=== PATIENT | female | born 1980 | race Caucasian/White ===

== ENCOUNTER 2021-07-08 14:25 | Inpatient (IN) | payer OTHER, MEDICARE ==
[2021-07-08] MEDS ORDERED: hydrOXYzine HCl 25 MG Tab PO PRN (14:42)
[2021-07-08] MEDS ORDERED: Piperacillin/Tazobactam 4.5 GM in Sodium Chloride 0.9% 100 ML IV ONE (15:15)
[2021-07-08] MEDS: Sodium Chloride 0.9% 1,000 ML IV SCH (15:22)
[2021-07-08] MEDS: metroNIDAZOLE/Normal Saline 500 MG in Premix Bag 1 BAG IV SCH ×2 (15:30→22:23)
[2021-07-08] MEDS: Ondansetron 4 MG Tab.DIS PO PRN ×2 (15:32→22:28)
[2021-07-08] MEDS: Morphine 2 MG/ML SYRINGE IVPUSH PRN ×4 (15:32→22:20)
[2021-07-08 16:02] LABS: CHLORIDE,CL 101 mmol/L (98-107); SODIUM,NA 139 mmol/L (136-145)
[2021-07-08 16:07] LABS: ANION GAP 15.6 mmol/L (5-15)
[2021-07-08] MEDS ORDERED: RIZATRIPTAN BENZOATE 10 MG PO PRN (18:59)
[2021-07-08] MEDS ORDERED: Bisacodyl 5 MG Tab PO PRN (18:59)
[2021-07-08] MEDS ORDERED: PETROLATUM WHITE EYERT PRN (18:59)
[2021-07-08] MEDS ORDERED: MINERAL OIL EYERT PRN (18:59)
[2021-07-08] MEDS ORDERED: SUMAtriptan 50 MG Tab PO PRN (19:00)
[2021-07-08] MEDS: Topiramate 50 MG Tab PO SCH (19:56)
[2021-07-08] MEDS: Acetaminophen 325 MG Tab PO PRN (19:57)
[2021-07-08] MEDS: Gabapentin 300 MG Cap PO SCH (19:59)
[2021-07-08] MEDS: carBAMazepine 200 MG Tab PO SCH (19:59)
[2021-07-08] MEDS: methylPREDNISolone Sodium Succinate 40 MG/1 ML SDV IVPUSH SCH (20:00)
[2021-07-08] MEDS ORDERED: metroNIDAZOLE/Normal Saline 100 ML ONE (22:03)
[2021-07-08] MEDS ORDERED: Piperacillin/Tazobactam 3.375 GM in Sodium Chloride 0.9% 100 ML IV SCH (23:00)
[2021-07-08] MEDS: Piperacillin/Tazobactam 3.375 GM in Sodium Chloride 0.9% 100 ML IV SCH (23:25)
--- NOTE | 2021-07-08 23:33 | HP ---
Admission history and physical to the acute care floor at [facility]. CHIEF COMPLAINT: Abdominal pain. HISTORY OF PRESENT ILLNESS: The patient had presented earlier to the [facility] complaining of abdominal pain that started a couple of days ago. The patient is status post hysterectomy 2 months ago. The patient states she only had 1 UTI since her surgery. She did have COVID 2 weeks ago. The patient states her pain is along the right lower abdomen and radiates to the right lower pelvis into the right groin. She rates her pain 10/10. The patient states her bowel movements are normal. She only has a bowel movement about once a week. She does not have any dysuria or frequency. She denies any vaginal odor or discharge. She has had some nausea but no vomiting. No diarrhea. The patient states the pain waxes and wanes, but it is always present to some degree. The patient denies any headaches, dizziness, or lightheadedness. No shortness of breath or cough. No chest pain or palpitations. The patient has had fevers and chills since yesterday. PAST MEDICAL HISTORY: 1. Arnold Chiari malformation. 2. Meibomian gland disease. 3. 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 4. Corneal faustina revascularization. 5. Glaucoma, right eye. 6. Post corneal transplant. 7. Cholecystitis, chronic. 8. Chronic migraine. 9. GERD. 10.Uterovaginal prolapse. 11.Cystocele with rectocele. 12.Chronic pain syndrome. 13.Chronic constipation. PAST SURGICAL HISTORY: 1. Vaginal prolapse repair. 2. Vaginal hysterectomy. 3. Upper GI endoscopy. 4. Revision of aqueous shunt. 5. Colonoscopy. 6. Keratoplasty. 7. Cholecystectomy. 8. Excision of pterygium with graft. FAMILY HISTORY: Noncontributory. SOCIAL HISTORY: The patient does not drink any alcohol. The patient does not use any illegal substances. The patient is a nonsmoker. The patient is disabled secondary to right eye injury. LABORATORY STUDIES: 1. CBC: White blood cell count was 16.8, hemoglobin 11.4, hematocrit 34.7, platelets 347,000. 2. BMP: Sodium 139, potassium 3.6, chloride 101, CO2 of 26, anion gap 15.6, BUN 8, creatinine 0.9, GFR greater than 60, glucose 102, lactic acid 0.9, calcium 8.3, AST 13, ALT 19, alkaline phosphatase 132. 3. CRP 14.9. 4. Procalcitonin 0.06. IMAGING STUDIES: CT of chest, abdomen, and pelvis with and without contrast reveals acute sigmoid diverticulitis with micro perforation and multiple adjacent fluid collections consistent with abscess. Multiple prominent fluid- filled loops of small bowel without clear transition point. These findings are likely suggestive of reactive ileus versus partial small bowel obstruction. Ground-glass densities, most pronounced within the right upper lobe is likely infectious/inflammatory in nature as can be seen with atypical/viral pneumonia. REVIEW OF SYSTEMS: As above. DISCHARGE PHYSICAL EXAMINATION: Vital signs: Height 5 feet 7 inches, weight is 244, blood pressure 102/68, pulse 88, respiratory rate 32, temperature 101.7, SpO2 of 95%. Skin: Intact, warm, and dry. Respiratory: Lungs are clear to auscultation, no wheezing. Cardiovascular: Regular rate and rhythm, no murmur. Abdomen: Exquisitely tender in the right lower quadrant extending into the right lower pelvis. Bowel sounds are hypoactive. Neurological: The patient is alert. The patient is oriented to person, place, and time. Extremities: No edema. General: The patient is not in any acute distress. The patient is cooperative. No focal neurological deficits. ASSESSMENT: 1. Sepsis secondary to abdominal abscess as evidenced by leukocytosis and fever. 2. Acute sigmoid diverticulitis with micro perforation. 3. Colon abscess. 4. Chronic pain syndrome. 5. Chronic use of opioid analgesics. 6. Opioid induced constipation. 7. Chronic migraines. 8. Major depressive disorder, in remission. PLAN: A 40-year-old female patient admitted to the acute care floor at [facility] for the above diagnoses. The case was discussed with Dr. Wilbert Patricia, general surgeon at [facility]. The patient does not appear to be a surgical candidate at this point, however, if her symptoms worsen, we will repeat the CT scan. The patient will be started on Zosyn and Flagyl IV. We will leave n.p.o. throughout tonight and restart clear liquids tomorrow. Case management for discharge planning. The patient to be out of bed and up and walking. DVT prophylaxis with early ambulation. No indication for PT or OT services. The patient is a full code. The patient does wish to transfer to a higher level of care should the need arise. We will start the patient on IV prednisone for colon inflammation. We will start the patient on IV Protonix for GI prophylaxis. Home medications are the same. This patient was seen and examined by me as an [facility] provider. TB: 07/08/2021 19:14:08 MODL: 07/08/2021 23:26:34 /[id number]
[2021-07-09] MEDS: Sodium Chloride 0.9% 1,000 ML IV SCH ×2 (02:49→23:43)
[2021-07-09] MEDS: Morphine 2 MG/ML SYRINGE IVPUSH PRN ×2 (04:09→06:25)
[2021-07-09] MEDS: Ondansetron 4 MG Tab.DIS PO PRN (04:09)
[2021-07-09] MEDS: metroNIDAZOLE/Normal Saline 500 MG in Premix Bag 1 BAG IV SCH ×3 (06:23→23:46)
[2021-07-09] MEDS: methylPREDNISolone Sodium Succinate 40 MG/1 ML SDV IVPUSH SCH (08:31)
[2021-07-09] MEDS: Pantoprazole 40 MG Vial IVPUSH SCH (08:31)
[2021-07-09] MEDS: Piperacillin/Tazobactam 3.375 GM in Sodium Chloride 0.9% 100 ML IV SCH ×2 (08:32→16:15)
[2021-07-09] MEDS: DULoxetine 60 MG Cap PO SCH (08:36)
[2021-07-09] MEDS: Spironolactone 25 MG Tab PO SCH (08:36)
[2021-07-09] MEDS: Gabapentin 300 MG Cap PO SCH ×3 (08:37→19:44)
[2021-07-09] MEDS: carBAMazepine 200 MG Tab PO SCH ×2 (08:37→19:45)
[2021-07-09] MEDS: Baclofen 10 MG Tab PO SCH ×3 (08:38→18:13)
[2021-07-09 08:47] LABS: CHLORIDE,CL 105 mmol/L (98-107); SODIUM,NA 139 mmol/L (136-145)
[2021-07-09] MEDS: HYDROmorphone 1 MG/ML Syringe IV PRN ×3 (08:48→23:35)
[2021-07-09 08:52] LABS: ANION GAP 11.7 mmol/L (5-15)
--- NOTE | 2021-07-09 17:53 | PN ---
Progress Note for TIAN BROOKS Date: 07/09/2021 Room #: VM.214 CHIEF COMPLAINT: Abdominal pain. SUBJECTIVE: Hospital day #2 for a 40-year-old female patient who was admitted yesterday for diverticulitis with microperforation and abscess. The patient states she is feeling the same today. She continues to have right lower quadrant pain. She states the morphine does not really seem to help. The patient had some nausea overnight. She has not had any vomiting. No bowel movement. The patient's fevers have improved. She has remained hemodynamically stable. The patient is not having any headaches, dizziness, or lightheadedness. No cough or shortness of breath. The patient denies any chest pain or palpitation. She has had intermittent chills. The abdominal pain does radiate from the right lower quadrant to the right groin. The patient is voiding urine without any problems. PHYSICAL EXAMINATION: Vital Signs: Temperature 98.1, pulse 84, blood pressure 102/60, respiratory rate 16, and oxygen saturation 95% on room air. Skin: Intact, warm, and dry. Respiratory: Lungs are clear throughout. Cardiovascular: Regular rate and rhythm. No murmur. Abdomen: Soft. Right lower quadrant and right lower pelvic tenderness to palpation. Bowel sounds are hypoactive x4. Extremities: No edema. Neurological: The patient is alert. Patient is oriented to person, place, and time. General: The patient is alert, in no distress. The patient is cooperative. LABORATORY STUDIES: 1. CBC: White blood cell count 15.4, hemoglobin 10.5, hematocrit 31.7, and platelets 289,000. 2. CMP: Sodium 139, potassium 3.7, chloride 105, CO2 of 26, anion gap 11.7, BUN 8, creatinine 0.8, GFR greater than 60, glucose 111, calcium 8.0, AST 11, ALT 16, alkaline phosphatase 112, and protein 6.5. ASSESSMENT: 1. Sepsis secondary to abdominal abscess as evidenced by leukocytosis and fever. 2. Acute sigmoid diverticulitis with microperforation. 3. Colon abscess. 4. Chronic pain syndrome. 5. Chronic use of opioid analgesics. 6. Opioid-induced constipation. 7. Chronic migraines. 8. Major depressive disorder, in remission. PLAN: Hospital day #2 for a 40-year-old female patient who was admitted with the above diagnoses. We will continue on Zosyn and Flagyl IV. Continue with Protonix and Solu-Medrol IV. We will attempt clear liquids today and see how the patient does. We discussed getting up out of bed and ambulating. Continue with IV fluids for hydration. We will discontinue morphine and try Dilaudid for the patient's pain. May consider Reglan. The patient is a full code 1. The patient does wish to transfer to a higher level of care should the need arise. Recheck laboratory work tomorrow morning. I do anticipate admission for another 2 to 3 days. The patient was seen and examined by me as an [facility] provider. TB: 07/09/2021 12:02:11 MODL: 07/09/2021 17:44:37 /[id number]
[2021-07-09] MEDS: Topiramate 50 MG Tab PO SCH (19:42)
[2021-07-09] MEDS: OXYCODONE 15 MG PO SCH (20:00)
[2021-07-10] MEDS: Piperacillin/Tazobactam 3.375 GM in Sodium Chloride 0.9% 100 ML IV SCH ×4 (00:49→20:26)
[2021-07-10] MEDS: Acetaminophen 325 MG Tab PO PRN (05:05)
[2021-07-10] MEDS: metroNIDAZOLE/Normal Saline 500 MG in Premix Bag 1 BAG IV SCH ×3 (06:34→19:22)
[2021-07-10 08:01] LABS: CHLORIDE,CL 104 mmol/L (98-107); SODIUM,NA 139 mmol/L (136-145)
[2021-07-10 08:02] LABS: ANION GAP 13.6 mmol/L (5-15)
[2021-07-10] MEDS: carBAMazepine 200 MG Tab PO SCH ×2 (08:59→19:24)
[2021-07-10] MEDS: DULoxetine 60 MG Cap PO SCH (08:59)
[2021-07-10] MEDS: Baclofen 10 MG Tab PO SCH ×3 (08:59→19:24)
[2021-07-10] MEDS: Spironolactone 25 MG Tab PO SCH (09:01)
[2021-07-10] MEDS: Gabapentin 300 MG Cap PO SCH ×3 (09:01→19:24)
[2021-07-10] MEDS: methylPREDNISolone Sodium Succinate 40 MG/1 ML SDV IVPUSH SCH (09:02)
[2021-07-10] MEDS: Pantoprazole 40 MG Vial IVPUSH SCH (09:05)
[2021-07-10] MEDS: HYDROmorphone 1 MG/ML Syringe IV PRN ×3 (11:33→21:33)
--- NOTE | 2021-07-10 19:22 | PN ---
Progress Note for TIAN BROOKS Date: 07/10/2021 Room #: VM.214 CHIEF COMPLAINT: Abdominal pain. SUBJECTIVE: Hospital day #3 for a 40-year-old female patient who was admitted on Sunday for diverticulitis with microperforation and abscess. The patient states she is feeling somewhat better today. Her pain is very positional, depending upon how she is lying in the bed. She continues to have nausea, requiring IV Zofran. She has been trying some Jell-O, which seems to be okay. The patient's pain is well controlled on the Dilaudid. The patient did have some trouble with urination last evening; however, it is better today. No issues with bowel movements. The patient denies any headache, dizziness, or lightheadedness. No chest pain or palpitations. Patient denies any cough or shortness of breath. Her abdominal pain continues to be along the right lower quadrant extending into the right groin. Pain continues to be a dull ache to sharp and stabbing with movement. The patient has not had any fevers or chills. REVIEW OF SYSTEMS: As above. PHYSICAL EXAMINATION: Vital Signs: Temperature 99.0, pulse 118, blood pressure 137/84, respiratory rate 17, and oxygen saturation 98% on room air. Skin: Intact, warm, and dry. Respiratory: Lungs are clear throughout. Cardiovascular: Regular rate and rhythm, no murmur. Abdomen: Soft, right lower quadrant with right lower pelvic tenderness to palpation. Bowel sounds are hypoactive x4. Extremities: No edema. Neurological: The patient is alert. Patient is oriented to person, place, and time. General: The patient is alert, in no distress. Patient is cooperative. LABORATORY STUDIES: CBC: White blood cell count 14.3, hemoglobin 9.4, hematocrit 28.7, and platelets 252,000. BMP: Sodium 137, potassium 3.6, chloride 104, CO2 of 25, anion gap 13.6, BUN 9, creatinine 0.8, GFR greater than 60, glucose 99, and calcium 7.7. ASSESSMENT: 1. Sepsis secondary to abdominal abscesses evidenced by leukocytosis and fever. 2. Acute sigmoid diverticulitis with microperforation. 3. Colon abscess. 4. Chronic pain syndrome. 5. Chronic use of opioid analgesics. 6. Opioid-induced constipation. 7. Chronic migraine. 8. Major depressive disorder, in remission. PLAN: Hospital day #3 for a 40-year-old female patient who was admitted to the acute care floor at [facility] for the above diagnoses. Continue with IV Zofran and Flagyl. Continue with IV Protonix and Solu-Medrol. We will continue on clear liquids as tolerated. Continue on IV fluids for hydration. Continue Dilaudid as this is working well for the patient's pain. The patient is a code 1. The patient does wish to transfer to a higher level of care should the need arise. We will recheck laboratory work tomorrow morning. We will recheck CT with and without contrast of the abdomen and pelvis tomorrow. If there is improvement, may consider discharge on Sunday. The patient was seen and examined by me as an [facility] provider. TB: 07/10/2021 16:20:21 MODL: 07/10/2021 18:01:43 /[id number]
[2021-07-10] MEDS: Topiramate 50 MG Tab PO SCH (19:24)
[2021-07-10] MEDS ORDERED: Non-Formulary Medication 1 Each PO SCH (19:45)
[2021-07-10] MEDS: PROPRANOLOL 160 MG PO SCH (20:25)
[2021-07-10] MEDS: Sodium Chloride 0.9% 1,000 ML IV SCH (21:28)
[2021-07-11] MEDS: metroNIDAZOLE/Normal Saline 500 MG in Premix Bag 1 BAG IV SCH ×3 (02:45→20:37)
[2021-07-11] MEDS: Piperacillin/Tazobactam 3.375 GM in Sodium Chloride 0.9% 100 ML IV SCH ×3 (04:05→21:43)
[2021-07-11] MEDS: HYDROmorphone 1 MG/ML Syringe IV PRN ×4 (04:13→23:05)
[2021-07-11 07:40] LABS: CHLORIDE,CL 105 mmol/L (98-107); SODIUM,NA 140 mmol/L (136-145)
[2021-07-11 07:42] LABS: ANION GAP 12.7 mmol/L (5-15)
[2021-07-11] MEDS: Pantoprazole 40 MG Vial IVPUSH SCH (07:51)
[2021-07-11] MEDS: methylPREDNISolone Sodium Succinate 40 MG/1 ML SDV IVPUSH SCH (07:52)
[2021-07-11] MEDS: Spironolactone 25 MG Tab PO SCH (08:06)
[2021-07-11] MEDS: DULoxetine 60 MG Cap PO SCH (08:06)
[2021-07-11] MEDS: Baclofen 10 MG Tab PO SCH ×3 (08:06→17:09)
[2021-07-11] MEDS: carBAMazepine 200 MG Tab PO SCH ×2 (08:07→20:58)
[2021-07-11] MEDS: Ondansetron 4 MG Tab.DIS PO PRN (08:07)
[2021-07-11] MEDS: Gabapentin 300 MG Cap PO SCH ×3 (08:07→20:57)
[2021-07-11] MEDS: PROPRANOLOL 160 MG PO SCH (08:11)
[2021-07-11] MEDS ORDERED: Iopamidol 612 MG/ML 100 ML Bottle IVPUSH ONE (10:12)
[2021-07-11] MEDS ORDERED: Iopamidol 612 MG/ML 50 ML SDV IVPUSH ONE (10:12)
--- NOTE | 2021-07-11 12:44 | CT ---
[id number] CT/CT Abdomen Pelvis W IV EXAM: CT Abdomen Pelvis W IV CLINICAL DATA: DIVERTICULITIS WITH PERFORATION COMPARISON: CORRELATION IS MADE WITH 2020 FINDINGS: There is discoid atelectasis at both lung bases Free fluid and inflammatory changes at the level of the sigmoid colon are slightly increased since the last exam. The liver and spleen, kidneys and adrenals, pancreas and aorta otherwise are unremarkable IMPRESSION: SLIGHT INCREASED INFLAMMATORY CHANGES RELATED TO SIGMOID DIVERTICULITIS SINCE LAST EXAM Niko Daley MD 07/11/21 1257 Thank you for allowing us to participate in the care of your patient.
[2021-07-11] MEDS ORDERED: Non-Formulary Medication 1 Each EYERT SCH ×2 (16:00→20:00)
[2021-07-11] MEDS: OXYCODONE 15 MG PO SCH ×4 (16:25→21:09)
[2021-07-11] MEDS: [UNRECOGNIZED DRUG - OTHER] EYERT SCH ×2 (16:26→20:59)
[2021-07-11] MEDS: Sodium Chloride 0.9% 10 ML Syringe FLUSH PRN (16:40)
[2021-07-11] MEDS: Sodium Chloride 0.9% 1,000 ML IV SCH (20:56)
[2021-07-11] MEDS: Topiramate 50 MG Tab PO SCH (20:58)
[2021-07-11] MEDS: COMBIGAN EYE EYERT SCH (20:59)
--- NOTE | 2021-07-12 00:53 | PN ---
Progress Note for TIAN BROOKS Date: 07/11/2021 Room #: VM.214 CHIEF COMPLAINT: Abdominal pain. SUBJECTIVE: Hospital day #4 for a 40-year-old female patient, who was admitted last [place] for diverticulitis with microperforation and abscess. The patient states she is feeling somewhat better today, but not much progress. She continues to have nausea, but no vomiting. She continues to have significant right lower quadrant pain radiating to the right groin. She has been attempting clear liquids, which seem to be okay. She is voiding normal amounts. She is having bowel movements. The patient has not had any fevers or chills. She denies any headache, dizziness, or lightheadedness. The patient denies any diarrhea. REVIEW OF SYSTEMS: See HPI. PHYSICAL EXAMINATION: Vital Signs: Temperature 97.1, pulse 84, blood pressure 113/65, respiratory rate 16, oxygen saturation 98% on room air. Skin: Intact, warm, and dry. Respiratory: Lungs are clear throughout. Cardiovascular: Regular rate and rhythm. No murmur. Abdomen: Soft. Tenderness along the right lower quadrant with right lower pelvic tenderness to palpation. Bowel sounds are hypoactive x4. Extremities: No edema. Neurological: The patient is alert. The patient is oriented to person, place, and time. General: The patient is alert. In no acute distress. The patient is cooperative. LABORATORY STUDIES: 1. CBC: White blood cell count 11.3, hemoglobin 9.2, hematocrit 28.7, platelets 266,000. 2. CMP: Sodium 140, potassium 3.7, chloride 105, CO2 of 26, anion gap 12.7, BUN 8, creatinine 0.7, GFR greater than 60, glucose 95, calcium 7.6, AST 21, ALT 25, alkaline phosphatase 92, total protein 6.0. 3. Lactic acid 0.6. ASSESSMENT: 1. Sepsis secondary to abdominal abscess, evidenced by leukocytosis and fever. 2. Acute sigmoid diverticulitis with microperforation. 3. Colon abscess. 4. Chronic pain syndrome. 5. Chronic use of opioid analgesics. 6. Opioid-induced constipation. 7. Chronic migraine. 8. Major depressive disorder, in remission. PLAN: Hospital day #4 on a 40-year-old female patient, who was admitted to the acute care floor at [facility] for the above diagnoses. I did contact the general surgeon, Dr. Morillo, in regard to the patient's repeat CT scan today. He does not see any surgical intervention at this time. He would like to see the patient remain on antibiotics for the next couple of days. If her condition does not improve, she then may need surgery with possible colostomy. The patient will continue on IV Zofran and Flagyl. Continue with IV Protonix and Solu-Medrol at this point. Continue on clear liquids only. Continue on Dilaudid for pain control. The patient is a code 1. The patient does wish to transfer to a higher level of care should the need arise. The patient's repeat CT scan from today showed slight increased inflammatory changes related to sigmoid diverticulitis. This patient was seen and examined by me as an provider. TB: 07/11/2021 21:18:19 MODL: 07/12/2021 00:44:28 /[id number]
[2021-07-12] MEDS: metroNIDAZOLE/Normal Saline 500 MG in Premix Bag 1 BAG IV SCH ×3 (02:59→19:26)
[2021-07-12] MEDS: Piperacillin/Tazobactam 3.375 GM in Sodium Chloride 0.9% 100 ML IV SCH ×3 (04:12→20:32)
[2021-07-12 07:13] LABS: ANION GAP 12.5 mmol/L (5-15); CHLORIDE,CL 108 mmol/L (98-107); SODIUM,NA 143 mmol/L (136-145)
[2021-07-12] MEDS: HYDROmorphone 1 MG/ML Syringe IV PRN ×2 (07:59→15:38)
[2021-07-12] MEDS: Sodium Chloride 0.9% 10 ML Syringe FLUSH PRN ×2 (08:00→15:39)
[2021-07-12] MEDS: methylPREDNISolone Sodium Succinate 40 MG/1 ML SDV IVPUSH SCH (08:00)
[2021-07-12] MEDS: Ondansetron 4 MG Tab.DIS PO PRN (08:05)
[2021-07-12] MEDS: [UNRECOGNIZED DRUG - OTHER] EYERT SCH ×4 (08:10→20:38)
[2021-07-12] MEDS: COMBIGAN EYE EYERT SCH ×2 (08:10→20:39)
[2021-07-12] MEDS: Spironolactone 25 MG Tab PO SCH (08:11)
[2021-07-12] MEDS: Baclofen 10 MG Tab PO SCH ×3 (08:11→17:43)
[2021-07-12] MEDS: PROPRANOLOL 160 MG PO SCH (08:11)
[2021-07-12] MEDS: DULoxetine 60 MG Cap PO SCH (08:12)
[2021-07-12] MEDS: Gabapentin 300 MG Cap PO SCH ×3 (08:12→20:37)
[2021-07-12] MEDS: carBAMazepine 200 MG Tab PO SCH ×2 (08:12→20:35)
[2021-07-12] MEDS: Pantoprazole 40 MG Vial IVPUSH SCH (08:14)
[2021-07-12] MEDS: OXYCODONE 15 MG PO SCH ×2 (08:16→20:38)
[2021-07-12] MEDS: Topiramate 50 MG Tab PO SCH (20:35)
[2021-07-12] MEDS: Sodium Chloride 0.9% 1,000 ML IV SCH (22:00)
[2021-07-13] MEDS: HYDROmorphone 1 MG/ML Syringe IV PRN ×2 (01:54→04:18)
[2021-07-13] MEDS: metroNIDAZOLE/Normal Saline 500 MG in Premix Bag 1 BAG IV SCH ×2 (03:12→10:20)
[2021-07-13] MEDS: Piperacillin/Tazobactam 3.375 GM in Sodium Chloride 0.9% 100 ML IV SCH ×2 (04:26→11:21)
[2021-07-13 06:54] LABS: CHLORIDE,CL 109 mmol/L (98-107); SODIUM,NA 145 mmol/L (136-145)
[2021-07-13 06:56] LABS: ANION GAP 12.5 mmol/L (5-15)
[2021-07-13] MEDS: Baclofen 10 MG Tab PO SCH ×2 (07:44→11:22)
[2021-07-13] MEDS: DULoxetine 60 MG Cap PO SCH (07:44)
[2021-07-13] MEDS: carBAMazepine 200 MG Tab PO SCH (07:44)
[2021-07-13] MEDS: Gabapentin 300 MG Cap PO SCH ×2 (07:44→11:22)
[2021-07-13] MEDS: Spironolactone 25 MG Tab PO SCH (07:44)
[2021-07-13] MEDS: COMBIGAN EYE EYERT SCH (07:45)
[2021-07-13] MEDS: [UNRECOGNIZED DRUG - OTHER] EYERT SCH (07:46)
[2021-07-13] MEDS: OXYCODONE 15 MG PO SCH (07:47)
[2021-07-13] MEDS: PROPRANOLOL 160 MG PO SCH (07:49)
[2021-07-13] MEDS: Sodium Chloride 0.9% 1,000 ML IV SCH (07:52)
[2021-07-13] MEDS: Pantoprazole 40 MG Vial IVPUSH SCH (07:53)
[2021-07-13] MEDS: methylPREDNISolone Sodium Succinate 40 MG/1 ML SDV IVPUSH SCH (07:58)
--- NOTE | 2021-07-13 20:31 | DISCH ---
Discharge summary from the acute care floor at [facility]. HISTORY OF PRESENT ILLNESS: The patient had presented to the [facility] in [place] last [facility] after having abdominal pain for a couple of days. The patient had a CT scan completed, which showed right lower quadrant diverticulitis with microperforation as well as an abdominal abscess. The patient was also febrile in clinic. The patient did have COVID-19 2 weeks ago. On admission, the patient was rating her pain at 10/10. The patient was very nauseated. She felt some weakness. BRIEF HOSPITAL COURSE: The patient was started on IV Zosyn and Flagyl. She tolerated the IV antibiotics without any problems. The patient did have some fevers, but resolved at the time of discharge. She remained hemodynamically stable. The patient had normal bowel movements. No issues with urination. Pain was under good control with Dilaudid. The patient was able to advance her diet slowly without any problems. CONSULTATIONS: Case Management. ACTIVITY: As tolerated. DIET: Low residue, BRAT diet. Avoid greasy, fatty foods. LABORATORY STUDIES: 1. CBC: White blood cell count 7.3, hemoglobin 8.7, hematocrit 27.0, platelets 284,000. 2. BMP: Sodium 145, potassium 3.5, chloride 109, CO2 of 27, anion gap 12.5, BUN 6, creatinine 0.7, GFR greater than 60, glucose 107, calcium 7.9. DISCHARGE MEDICATIONS: 1. Baclofen 10 mg 3 times daily. 2. Bisacodyl 20 mg every 7 days as needed. 3. Tegretol 200 mg twice daily. 4. Cymbalta 60 mg p.o. daily. 5. Gabapentin 900 mg p.o. 3 times daily. 6. Hydroxyzine 25 mg 1 capsule p.o. every 6 hours as needed. 7. Flagyl 500 mg 3 times daily for the next 5 days. 8. Mineral oil/petroleum 1 application to right eye daily as needed. 9. Rizatriptan 10 mg p.o. daily as needed. 10.Oxycodone 5 mg 1 tablet p.o. 3 times daily. 11.Propranolol 160 mg 1 tablet p.o. daily. 12.Combigan eye drops 1 drop to right eye twice daily. 13.Durezol eyedrops 1 drop to right eye 4 times daily. 14.Aldactone 100 mg 1 tablet p.o. daily. 15.Sumatriptan 100 mg p.o. daily as needed. 16.Topamax 100 mg 1 tablet p.o. daily at bedtime. REVIEW OF SYSTEMS: Skin: Negative. General: Negative. Respiratory: Negative. Cardiovascular: Negative. Abdomen: Some colicky pain in right lower quadrant, otherwise no diarrhea or vomiting or nausea. Extremities: Negative. Neurological: Negative. DISCHARGE PHYSICAL EXAMINATION: Vital Signs: Temperature 97.2, pulse 64, blood pressure 91/55, respiratory rate 18, oxygen saturation 93% on room air. Skin: Intact, warm, and dry. Respiratory: Lungs are clear throughout. Cardiovascular: Regular rate and rhythm. No murmur. Abdomen: Intermittent tenderness, right lower quadrant. Bowel sounds are hypoactive x4. Soft. Extremities: No edema. Neurological: The patient is alert. The patient is oriented to person, place, and time. No focal neurological deficits. ASSESSMENT: 1. Sepsis secondary to abdominal abscess as evidenced by leukocytosis and fever, resolving. 2. Acute sigmoid diverticulitis with microperforation, resolving. 3. Colon abscess, improving. 4. Chronic pain syndrome. 5. Chronic use of opioid analgesics. 6. Opioid-induced constipation. 7. Chronic migraines. 8. Major depressive disorder, in remission. PLAN: A 40-year-old female patient was admitted to the acute care floor at [facility] for the above diagnoses. The patient is hemodynamically stable and afebrile and ready for discharge. The patient will be started on Cipro 500 mg twice daily for the next 5 days, concurrently with Flagyl 500 mg 3 times daily for the next 5 days. Side effects and safety profile of all medications were thoroughly discussed. We discussed her diet. Increase activity. The patient needs to stay well hydrated. The patient will follow up with her PCP in 1 week, sooner if any problems. The patient was seen and examined by me as an [facility] provider. TB: 07/13/2021 13:49:14 MODL: 07/13/2021 20:22:42 /[id number]
--- NOTE | 2021-07-13 21:00 | PN ---
Progress Note for TIAN BROOKS Date: 07/12/2021 Room #: [facility] CHIEF COMPLAINT: Abdominal pain. SUBJECTIVE: Hospital day #5 for a 40-year-old female patient who was admitted last Sunday for diverticulitis with microperforation and abscess. The patient states she is feeling a little bit better today. She continues to have intermittent colicky pain in the right lower quadrant. No fevers or chills. She has had some nausea, getting Zofran, which has helped. No diarrhea. No UTI symptoms. The patient has not had any sweats. She denies any headaches, dizziness, or lightheadedness. No chest pain or shortness of breath. The patient denies any palpitations or cough. REVIEW OF SYSTEMS: See HPI. PHYSICAL EXAMINATION: Vital Signs: Temperature 98.4, pulse 68, blood pressure 97/57, respiratory rate 16, oxygen saturation 96% on room air. Skin: Intact, warm, and dry. Respiratory: Lungs are clear throughout. Cardiovascular: Regular rate and rhythm. No murmur. Abdomen: Soft. Intermittent tenderness along the right lower quadrant with right lower pelvic tenderness to palpation. Bowel sounds are hypoactive x4. Extremities: No edema. Neurological: The patient is alert. The patient is oriented to person, place, and time. General: The patient is alert. In no acute distress. The patient is cooperative. LABORATORY STUDIES: 1. CBC: White blood cell count 8.0, hemoglobin 9.1, hematocrit 27.8, platelets 277,000. 2. BMP: Sodium 143, potassium 3.5, chloride 108, CO2 26, anion gap 12.5, BUN 6, creatinine 0.7, GFR greater than 60, glucose 101, calcium 7.9. ASSESSMENT: 1. Sepsis secondary to abdominal abscess, evidenced by leukocytosis and fever. 2. Acute sigmoid diverticulitis with microperforation. 3. Colon abscess. 4. Chronic pain syndrome. 5. Chronic use of opioid analgesics. 6. Opioid-induced constipation. 7. Chronic migraine. 8. Major depressive disorder, in remission. PLAN: Hospital day #5 for a 40-year-old female patient, who was admitted to the acute care floor at [facility] for the above diagnoses. The patient will continue on acute cares secondary to her diagnosis and ongoing pain. Will continue on Zosyn and Flagyl. Advance diet as tolerated. The patient needs to get up and get out of bed. The patient is a full code. The patient does wish to transfer to a higher level of care should the need arise. We will recheck laboratory work tomorrow. This patient was seen and examined by me as an [facility] provider. TB: 07/13/2021 13:41:31 MODL: 07/13/2021 20:53:47 /[id number]
== END 2021-07-13 12:27 | disposition home or self-care (01) | DRG 872 ==
LOC: VM.MS 14:25
PROVIDERS: ADMIT Nurse Practitioner Family; ATTEND Nurse Practitioner Family
DX: A41.89 Other specified sepsis (principal); K57.20 Diverticulitis of large intestine with perforation and abscess without bleeding; G89.29 Other chronic pain; F11.90 Opioid use, unspecified, uncomplicated; K59.03 Drug induced constipation; T40.2X5A Adverse effect of other opioids, initial encounter; G43.709 Chronic migraine without aura, not intractable, without status migrainosus; F32.5 Major depressive disorder, single episode, in full remission; H40.9 Unspecified glaucoma; Z90.49 Acquired absence of other specified parts of digestive tract
CPT/HCPCS: 36415; 74177; 80048; 80053; 81001; 83605; 84145; 85025; 86140; 87040; 87077; A9270-GY; C9113; J1170; J2270; J2543; J2920; J3490; J7030; Q9967

== ENCOUNTER 2024-08-18 09:01 | Emergency (ER) | payer OTHER, BC, MEDICARE ==
[2024-08-18] MEDS ORDERED: Tranexamic Acid 1,000 MG/10 ML Vial ONE (09:09)
[2024-08-18] MEDS ORDERED: EPINEPHrine 1:10,000 1 MG/10 ML Syringe ONE ×2 (09:09)
[2024-08-18 09:39] LABS: BASOPHILS PERCENT AUTO 0.3 % (0.2-1.2); EOSINOPHILS PERCENT AUTO 0.5 % (0.0-4.0); HEMATOCRIT 36.7 % (33.0-47.0); IMMATURE GRAN ABSOLUTE AUTO 0.25 x10^3/uL (0.00-0.07); LYMPHOCYTES ABSOLUTE AUTO 2.8 x10^3/uL (1.0-4.8); MEAN CORPUSCULAR HEMOGLOBIN 30.2 pg (26.0-32.0); MEAN CORPUSCULAR HGB CONC 32.7 g/dL (32.0-36.0); MEAN CORPUSCULAR VOLUME 92.2 fL (78.0-93.0); MONOCYTES ABSOLUTE AUTO 0.1 x10^3/uL (0.0-0.8); MONOCYTES PERCENT AUTO 2.2 % (2.0-11.0); NEUTROPHILS ABSOLUTE AUTO 0.5 x10^3/uL (1.8-7.7); NEUTROPHILS PERCENT AUTO 13.2 % (50.0-80.0); PLATELET COUNT,PLT 154 x10^3/uL (130-400); RED BLOOD CELL COUNT 3.98 x10^6/uL (4.00-5.50); WHITE BLOOD CELL COUNT,WBC 3.7 x10^3/uL (4.0-10.0)
[2024-08-18 09:41] LABS: CHLORIDE,CL 113 mmol/L (98-107); POTASSIUM,K 5.3 mmol/L (3.5-5.1); SODIUM,NA 135 mmol/L (136-145)
[2024-08-18 09:42] LABS: ANION GAP 20.3 mmol/L (5-15); BASE EXCESS ARTERIAL -17 mmol/L ((-2)-(+3)); BICARBONATE,ARTERIAL 9 mmol/L (21-28); BLOOD UREA NITROGEN,BUN 12 mg/dL (7-18); CARBON DIOXIDE,CO2 7 mmol/L (21-32); ESTIMATED GFR 70 mL/min (>=60); GLUCOSE RANDOM 401 mg/dL (70-99); PCO2 ARTERIAL 15 mmHG (35-48); PH,ARTERIAL 7.37 pH (7.35-7.45); PO2 ARTERIAL 207 mmHG (83-108)
[2024-08-18 10:02] LABS: CALCIUM 9.5 mg/dL (8.5-10.1)
== END 2024-08-18 09:59 | disposition expired ==
LOC: VM.ED 09:01
DX: S02.91XA Unspecified fracture of skull, initial encounter for closed fracture (principal); S05.8X1A Other injuries of right eye and orbit, initial encounter; Z88.2 Allergy status to sulfonamides; Z86.16 Personal history of COVID-19; Z79.899 Other long term (current) drug therapy; V43.63XA Car passenger injured in collision with pick-up truck in traffic accident, initial encounter; Y92.410 Unspecified street and highway as the place of occurrence of the external cause
CPT/HCPCS: 36415; 36600; 80048; 82803; 85025; 92950; 94002; 96365; 99291-25; G0390; J0171; J3490